=== PATIENT | female | born 1990 | race Caucasian/White ===

== ENCOUNTER 2023-03-13 00:02 | Inpatient (IN) | payer OTHER ==
[~2023-03-13] VITALS: Ht 162.6 cm; Wt 83.0 kg
[~2023-03-13 00:02] MED LIST: KRILL OIL500 MG; MULTI-VITAMIN1 EACH PO
[2023-03-13 00:33] VITALS: BP 136/73
--- NOTE | 2023-03-13 10:15 | PR ---
[facility] [address] [place], [place] [address] Signed Progress Notes IP Datetime Report Generated by CPN: 03/13/2023 10:15 PROGRESS NOTES: [id number] Impression: Normal Progression of Labor; Reassuring Heart Rate Procedures: Sterile Vag Exam Plan: Continue Present Management VITAL SIGNS: [id number] Vital Signs: Reviewed; Within Normal Limits EXAM: [id number] Dilatation: 2.5 Effacement: 90 Station: -1 Contractions: Irregular MEMBRANES: [id number] Comments: Pt seen and examined. Very uncomfortable. Considering epidural. Discussed cerivcal change and regular contractions c/w labor. Will start hourly glucose checks. Consider AROM once epidural placed and pt comfortable FETUS A: [id number] FHR Baseline: 125 Variability: Moderate 6-25bpm Accelerations: 15X15 Decelerations: None FHR Category: Category I Presentation: Vertex Comments on Fetus A: No evidence of metabolic acidosis FETUS B: [id number] Signing Physician: Nathan Banks DO Copies: ~ *Electronically Signed* 03/13/23 1015 NATHAN BANKS (BRIA) DO PATIENT NAME: HARLAN GUARDADO PROGRESS NOTE DATE OF : 92 PHYSICIAN: NATHAN BANKS (BRIA) DO RPT #: [id number] REPORT IS CONFIDENTIAL AND NOT TO BE RELEASED WITHOUT AUTHORIZATION
--- NOTE | 2023-03-13 12:03 | PR ---
[facility] [facility] [address] [place], [place] [address] Signed Progress Notes IP Datetime Report Generated by CPN: 03/13/2023 12:03 PROGRESS NOTES: [id number] Impression: Normal Progression of Labor; Reassuring Heart Rate Procedures: Artificial ROM; Sterile Vag Exam Plan: Continue Present Management VITAL SIGNS: [id number] Vital Signs: Reviewed; Within Normal Limits EXAM: [id number] Dilatation: 3.0 Effacement: 90 Station: -1 Contractions: Irregular MEMBRANES: [id number] Comments: Pt seen and examined. Doing well. Comfortable w/ epidural. Discussed expectant managment vs AROM and pt desires AROM. Vertex noted to be well applied to cervix and membranes bulging. AROM easily performed for moderate amount of clear fluid. Will monitor closely. Discussed indications for IUPC if needed. All questions answered FETUS A: [id number] FHR Baseline: 125 Variability: Moderate 6-25bpm Accelerations: 15X15 Decelerations: None FHR Category: Category I Presentation: Vertex Comments on Fetus A: No evidence of metabolic acidosis FETUS B: [id number] Signing Physician: Nathan Banks DO Copies: ~ *Electronically Signed* 03/13/23 1203 NATHAN BANKS (BRIA) DO PATIENT NAME: HARLAN GUARDADO PROGRESS NOTE DATE OF : 92 PHYSICIAN: NATHAN BANKS (JD) DO RPT #: [id number] REPORT IS CONFIDENTIAL AND NOT TO BE RELEASED WITHOUT AUTHORIZATION
--- NOTE | 2023-03-13 14:05 | PR ---
[facility] [address] [place], [place] [address] Signed Progress Notes IP Datetime Report Generated by CPDominic: 03/13/2023 14:05 PROGRESS NOTES: [id number] Impression: Normal Progression of Labor Procedures: Intrauterine Pressure Catheter; Scalp Electrode; Sterile Vag Exam Plan: Continue Present Management Informed Consent Obtain: Vaginal Delivery; Section Delivery VITAL SIGNS: [id number] Vital Signs: Reviewed; Within Normal Limits EXAM: [id number] Dilatation: 5.0 Effacement: 100 Station: -2 Contractions: Irregular MEMBRANES: [id number] Comments: Called to pt room for prolonged deceleration. Pt reports she feels. Some relative hypotension. Normal blood glucose. No vaginal bleeding. FHT reassuring following FSE, IUPC, IV fluids, and maternal repositioning. Discussed deceleration, intrauterine rescussitation, and indications for if needed. All questions answered and consents for C/S if needed completed. Will continue close monitoring, however FHT reassuring at this point. FETUS A: [id number] FHR Baseline: 125 Variability: Moderate 6-25bpm Accelerations: 15X15 Decelerations: None FHR Category: Category I Presentation: Vertex Comments on Fetus A: No evidence of metabolic acidosis FETUS B: [id number] Signing Physician: Nathan Banks DO Copies: ~ *Electronically Signed* 03/13/23 1807 NATHAN BANKS (BRIA) DO PATIENT NAME: HARLAN GUARDADO PROGRESS NOTE DATE OF : 92 PHYSICIAN: NATHAN BANKS) DO RPT #: [id number] REPORT IS CONFIDENTIAL AND NOT TO BE RELEASED WITHOUT AUTHORIZATION
--- NOTE | 2023-03-13 15:17 | PR ---
[facility] [address] [place], [place] [address] Signed Progress Notes IP Datetime Report Generated by CPN: 03/13/2023 15:17 PROGRESS NOTES: [id number] Impression: Normal Progression of Labor Other Impressions: Cat 2 Procedures: Sterile Vag Exam Plan: Continue Present Management Other Plans: Discussed Cat 2 tracing Informed Consent Obtain: Vaginal Delivery; Section Delivery VITAL SIGNS: [id number] Vital Signs: Reviewed; Within Normal Limits EXAM: [id number] Dilatation: 5.0 Effacement: 90 Station: -2 Contractions: Irregular MEMBRANES: [id number] Comments: Pt seen and examined. Comfortable w/ epidural. Moderate variability noted but recurrent late decelerations. Ephedrine 10mg IV given. Continue intrauterine rescussitation. Discussed moderate varibility is generally reassuring but that if recurrent late decelerations continue or if minimal variability w/ recurrent lates, would likely recommend primary LTCS. All questions answered to best of my ability and to patient's apparent satisfaction FETUS A: [id number] FHR Baseline: 125 Variability: Moderate 6-25bpm Accelerations: 15X15 Decelerations: None FHR Category: Category I Presentation: Vertex Comments on Fetus A: No evidence of metabolic acidosis FETUS B: [id number] Signing Physician: Nathan Banks DO Copies: ~ *Electronically Signed* 03/13/23 0587 NATHAN BANKS (BRIA) DO PATIENT NAME: HARLAN GUARDADO PROGRESS NOTE DATE OF : 92 PHYSICIAN: NATHAN BANKS) DO RPT #: [id number] REPORT IS CONFIDENTIAL AND NOT TO BE RELEASED WITHOUT AUTHORIZATION
--- NOTE | 2023-03-13 16:22 | PR ---
[facility] [address] [place], [place] [address] Signed Progress Notes IP Datetime Report Generated by CPN: 03/13/2023 16:22 PROGRESS NOTES: [id number] Impression: Normal Progression of Labor; Reassuring Heart Rate Other Impressions: Cat 2 Procedures: Sterile Vag Exam Plan: Continue Present Management Other Plans: Discussed Cat 2 tracing Informed Consent Obtain: Vaginal Delivery VITAL SIGNS: [id number] Vital Signs: Reviewed; Within Normal Limits EXAM: [id number] Dilatation: 5.0 Effacement: 90 Station: -2 Contractions: Irregular MEMBRANES: [id number] Comments: Pt seen and examined. Doing well. Comfortable w/ epidural. Discussed much improved heart pattern s/p ephedrine. Will continue expectant management. IUPC not tracing well and external tocometer used. Will replace IUPC if needed. All questions answered. FETUS A: [id number] FHR Baseline: 125 Variability: Moderate 6-25bpm Accelerations: 15X15 Decelerations: None FHR Category: Category I Presentation: Vertex Comments on Fetus A: No evidence of metabolic acidosis FETUS B: [id number] Signing Physician: Nathan Banks DO Copies: ~ *Electronically Signed* 03/13/23 9678 NATHAN BANKS (BRIA) DO PATIENT NAME: HARLAN GUARDADO PROGRESS NOTE DATE OF : 92 PHYSICIAN: NATHAN BANKS (JD) DO RPT #: [id number] REPORT IS CONFIDENTIAL AND NOT TO BE RELEASED WITHOUT AUTHORIZATION
--- NOTE | 2023-03-13 17:11 | PR ---
[facility] [address] [place], [place] [address] Signed Progress Notes IP Datetime Report Generated by CPN: 03/13/2023 17:11 PROGRESS NOTES: [id number] Impression: Normal Progression of Labor; Reassuring Heart Rate Other Impressions: Cat 2 Procedures: Sterile Vag Exam Plan: Continue Present Management; Anticipate Vaginal Delivery Other Plans: Discussed Cat 2 tracing Informed Consent Obtain: Vaginal Delivery VITAL SIGNS: [id number] Vital Signs: Reviewed; Within Normal Limits EXAM: [id number] Dilatation: 5.0 Effacement: 90 Station: -2 Contractions: Irregular MEMBRANES: [id number] Comments: Pt seen and examined. Doing well. Feeling more pelvic pressure and discomfort. On exam, now 8cm. FHT reassuring. Reviewed glucose levels and vitals. All questions answered. Continue expectant management. Anticipate FETUS A: [id number] FHR Baseline: 125 Variability: Moderate 6-25bpm Accelerations: 15X15 Decelerations: None FHR Category: Category I Presentation: Vertex Comments on Fetus A: No evidence of metabolic acidosis FETUS B: [id number] Signing Physician: Nathan Banks DO Copies: ~ *Electronically Signed* 03/13/23 7236 NATHAN BANKS (BRIA) DO PATIENT NAME: HARLAN GUARDADO PROGRESS NOTE DATE OF : 92 PHYSICIAN: NATHAN BANKS (JD) DO RPT #: [id number] REPORT IS CONFIDENTIAL AND NOT TO BE RELEASED WITHOUT AUTHORIZATION
--- NOTE | 2023-03-13 17:40 | PR ---
[facility] [address] [place], [place] [address] Signed Progress Notes IP Datetime Report Generated by CPN: 03/13/2023 17:40 PROGRESS NOTES: [id number] Impression: Normal Progression of Labor; Reassuring Heart Rate Other Impressions: Cat 2 Procedures: Sterile Vag Exam Plan: Anticipate Vaginal Delivery Other Plans: Discussed Cat 2 tracing Informed Consent Obtain: Vaginal Delivery VITAL SIGNS: [id number] Vital Signs: Reviewed; Within Normal Limits EXAM: [id number] Dilatation: 8.0 Effacement: 90 Station: -2 Contractions: Irregular MEMBRANES: [id number] Comments: Pt seen and examined. Doing well. Comfortable w/ contractions. Periods of minimal and moderate variability. Pt now complete and will push w/ contractions. Discussed anticipated course of 2nd stage of labor FETUS A: [id number] FHR Baseline: 125 Variability: Moderate 6-25bpm Accelerations: 15X15 Decelerations: None FHR Category: Category I Presentation: Vertex Comments on Fetus A: No evidence of metabolic acidosis FETUS B: [id number] Signing Physician: Nathan Banks DO Copies: ~ *Electronically Signed* 03/13/23 0549 NATHAN BANKS (BRIA) DO PATIENT NAME: HARLAN GUARDADO PROGRESS NOTE DATE OF : 92 PHYSICIAN: NATHAN BANKS) DO RPT #: [id number] REPORT IS CONFIDENTIAL AND NOT TO BE RELEASED WITHOUT AUTHORIZATION
--- NOTE | 2023-03-15 07:40 | PR ---
[facility] [address] [place], [place] [address] Signed PP Progress Notes Datetime Report Generated by CPN: 03/15/2023 07:40 SUBJECTIVE: [id number] Pain: Within Normal Limits Nausea/Vomiting: Denies Flatus: Yes Bowel Movement: Yes Vital Signs: [id number] Vital Signs: Reviewed; Within Normal Limits Cardiovascular: Normal Respiratory: Normal Abdomen/Uterus: Normal Lochia: Normal Vulva/Perineum: Not Done Breasts: Not Done CVA Tenderness: Normal Extremities: Normal Incision: Not Applicable Progress: Normal Exam Comments: Fundus firm U-2 nontender IMPRESSION/PLAN/PROCEDURES: [id number] Impression: Normal Progression Plan: Discharge Progress Notes: Pt seen and examined. Doing well. Ambulating, voiding, and tolerating full diet. Pain and lochia minimal. well. No concerns. Signing Physician: Nathan Banks DO Copies: ~ *Electronically Signed* 03/15/23 7540 NATHAN BANKS (BRIA) DO PATIENT NAME: HARLAN GUARDADO PROGRESS NOTE DATE OF : 92 PHYSICIAN: NATHAN BANKS (BRIA) DO RPT #: [id number] REPORT IS CONFIDENTIAL AND NOT TO BE RELEASED WITHOUT AUTHORIZATION
== END 2023-03-15 12:45 | disposition home or self-care (01) | DRG 807 ==
LOC: FBC
PROVIDERS: ADMIT Obstetrics & Gynecology; ATTEND Obstetrics & Gynecology
PROC: 10907ZC Drainage of Amniotic Fluid, Therapeutic from Products of Conception, Via Natural or Artificial Opening (ICD-10-PCS; principal; 2023-03-13)
PROC: 10E0XZZ Delivery of Products of Conception, External Approach (ICD-10-PCS; 2023-03-13)
PROC: 0KQM0ZZ Repair Perineum Muscle, Open Approach (ICD-10-PCS; 2023-03-13)
PROC: 00HU33Z Insertion of Infusion Device into Spinal Canal, Percutaneous Approach (ICD-10-PCS; 2023-03-13)
PROC: 3E0R3BZ Introduction of Anesthetic Agent into Spinal Canal, Percutaneous Approach (ICD-10-PCS; 2023-03-13)
PROC: 10H07YZ Insertion of Other Device into Products of Conception, Via Natural or Artificial Opening (ICD-10-PCS; 2023-03-13)
PROC: 3E0P7VZ Introduction of Hormone into Female Reproductive, Via Natural or Artificial Opening (ICD-10-PCS; 2023-03-13)
PROC: 4A1HXCZ Monitoring of Products of Conception, Cardiac Rate, External Approach (ICD-10-PCS; 2023-03-13)
DX: O24.420 Gestational diabetes mellitus in childbirth, diet controlled (principal); Z37.0 Single live birth; O13.4 Gestational [pregnancy-induced] hypertension without significant proteinuria, complicating childbirth; O70.1 Second degree perineal laceration during delivery; O48.0 Post-term pregnancy; O90.1 Disruption of perineal obstetric wound; Z67.40 Type O blood, Rh positive; Z3A.40 40 weeks gestation of pregnancy; Z87.891 Personal history of nicotine dependence; Z87.59 Personal history of other complications of pregnancy, childbirth and the puerperium
CPT/HCPCS: 36415; 85027; 86850; 86900; 86901; A9270; J2590; J7042; J7121